=== PATIENT | male | born 1945 | race Caucasian/White ===

== ENCOUNTER 2019-04-03 17:45 | Emergency (ER) | payer MEDICARE ==
[2019-04-03 18:11] VITALS: BP 11/74
--- NOTE | 2019-04-03 18:14 | ER Report ---
History and Physical Time Seen By MD: 18:12 HPI/ROS CHIEF COMPLAINT: pain right eye HISTORY OF PRESENT ILLNESS: This is a 74 year old male. He has pain in the medial corner of his right eye. No pain in the eye itself. Small bump over several days with pain in the skin around it. No fevers, but the area feels a little warm tonight. No vision changes. Allergies: Coded Allergies: No Known Drug Allergies (Unverified , 04/03/19) Home Meds Active Scripts Cephalexin Monohydrate (CEPHALEXIN) 500 Mg Cap, 500 MG PO Q6H, #20 CAP 0 Refills Prov:KIRK CAMPOS MD 04/03/19 Reported Medications Aspirin (ASPIRIN) 81 Mg Tab.chew, 81 MG PO QDAY, TAB.CHEW 04/03/19 Reviewed Nurses Notes: Yes Constitutional Vital Sign - Last 24 Hours 04/03/19 18:11 Temp 97.7 Pulse 73 Resp 16 B/P (MAP) 11/74 Pulse Ox 94 O2 Delivery Room Air Physical Exam General: Alert, no acute distress. ENT: Has what appears to be a small epidermal inclusion cyst at corner of eye and nasal bridge on right. Some surrounding erythema and slightly warm and tender to touch. Eyes: Normal conjunctiva and sclera. Pupils round and reactive. Extraocular movements are intact. Normal vision. No foreign bodies. Normal lid margins. Skin as noted. Medical Decision Making ED Course/Re-evaluation ED Course Expressed the small cyst, with thick material expressed. Patient had pain during this, but felt much better afterward. Small early cellulitis associated. Treating with Cephalexin 500mg 4 times a day. Warm compresses recommended. Decision to Disposition Date: Apr 03, 2019 Decision to Disposition Time: 18:26 Depart Departure Latest Vital Signs Vital Signs Date Time Temp Pulse Resp B/P (MAP) Pulse Ox O2 Delivery O2 Flow Rate FiO2 04/03/19 18:11 97.7 73 16 11/74 94 Room Air Impression: Primary Impression: Cellulitis and abscess of face Condition: Improved Disposition: HOME OR SELF-CARE New Scripts Cephalexin Monohydrate (CEPHALEXIN) 500 Mg Cap 500 MG PO Q6H, #20 CAP 0 Refills Prov: KIRK CAMPOS MD 04/03/19 Patient Instructions: Cellulitis (ED) Additional Instructions: Apply a hot compress to the inside corner of the right eye every 1-2 hours while awake. Take the antibiotic Cephalexin 500mg 4 times a day for 5 days. See an graves registration specialist if this is not resolving as planned. KIRK CAMPOS MD Apr 03, 2019 18:14
[2019-04-03] MEDS ORDERED: ASPI81TA94 PO (18:15)
[2019-04-03] MEDS ORDERED: CEPH500C24 PO (18:29)
== END 2019-04-03 18:35 | disposition home or self-care (01) ==
LOC: ER 18:33
DX: L03.211 Cellulitis of face (principal)
CPT/HCPCS: 99283